=== PATIENT | male | born 1965 | race Hispanic/Latino ===

== ENCOUNTER 2018-12-01 11:48 | Emergency (ER) | payer OTHER ==
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
[2018-12-01 12:00] VITALS: BP 155/104
[2018-12-01] MEDS ORDERED: ROBAXIN PO ONE (14:15)
[2018-12-01] MEDS ORDERED: TORADOL IM ONE (14:15)
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
== END 2018-12-01 15:00 | disposition home or self-care (01) ==
LOC: ED 11:48
DX: M54.2 Cervicalgia (principal); M54.9 Dorsalgia, unspecified; E11.9 Type 2 diabetes mellitus without complications; Z79.899 Other long term (current) drug therapy; V87.7XXA Person injured in collision between other specified motor vehicles (traffic), initial encounter; Y93.89 Activity, other specified; Y92.488 Other paved roadways as the place of occurrence of the external cause; Y99.8 Other external cause status
CPT/HCPCS: 82962; 99283